=== PATIENT | female | born 1965 ===

== ENCOUNTER 2017-07-11 08:33 | Emergency (ER) | payer OTHER ==
[2017-07-11 09:15] VITALS: BP 111/91
[2017-07-11] MEDS ORDERED: Ketorolac INJ* 30 MG/ML 1 ML VIAL IM ONE (09:36)
--- NOTE | 2017-07-11 10:01 | UC ---
Lower Extremity/Ankle HPI - HPI Summary HPI Summary: 52 up female presents for evaluation of her left foot States she has had migraines since a teen Has never had any imaging of her brain that she can remember states her headaches have been getting worse her PCP has prescribed IM nubain for her states her HAs are causing disequilbirium and she has had frequent fails photophobia no stiff neck can't get in to see a neurologist for 6 months - History of Current Complaint Chief Complaint: UCLowerExtremity Stated Complaint: LEFT FOOT INJURY FROM FALL Time Seen by Provider: 07/11/17 09:28 Onset/Duration: Sudden Onset, Lasting Hours Severity Initially: Severe Severity Currently: Severe Pain Intensity: 9 Pain Scale Used: 0-10 Numeric Aggravating Factor(s): Standing, Ambulation Alleviating Factor(s): Rest, Elevation Able to Bear Weight: No - Allergies/Home Medications Allergies/Adverse Reactions: Allergies Allergy/AdvReac Type Severity Reaction Status Date / Time No Known Allergies Allergy Verified 07/11/17 09:08 Home Medications: Home Medications ALPRAZolam [Xanax] 3 mg PO DAILY 07/11/17 [History Confirmed 07/11/17] Cetirizine* [ZyrTEC 10 MG TAB*] 10 mg PO DAILY 07/11/17 [History Confirmed 07/11] Dicyclomine CAP* [Bentyl CAP*] 20 mg PO QID PRN 07/11/17 [History Confirmed ] Linaclotide (NF) [Linzess (NF)] 290 mcg PO DAILY 07/11/17 [History Confirmed ] Metaxalone TAB* [Skelaxin TAB*] 800 mg PO QID 07/11/17 [History Confirmed ] Nalbuphine* [nuBAIN*] 20 mg .SEE ORDER TID 07/11/17 [History Confirmed 07/11/17] Zolpidem TAB* [Ambien TAB*] 10 mg PO BEDTIME 07/11/17 [History Confirmed ] busPIRone TAB* [Buspar TAB*] 10 mg PO DAILY 07/11/17 [History Confirmed 07/11/17 ] diphenhydrAMINE HCl [Benadryl Allergy] 75 mg PO DAILY 07/11/17 [History Confirmed 07/11/17] PMH/Surg Hx/FS Hx/Imm Hx Previously Healthy: Yes Neurological History: Migraine Psychological History: Anxiety, Depression - Surgical History Surgical History: Yes Surgery Procedure, Year, and Place: Hysterectomy. Polyp removal. Tonsils - Social History Alcohol Use: None Substance Use Type: None Smoking Status (MU): Never Smoked Tobacco Review of Systems Constitutional: Negative Skin: Negative Eyes: Negative ENT: Negative Respiratory: Negative Cardiovascular: Negative Gastrointestinal: Negative Genitourinary: Negative Motor: Negative Neurovascular: Negative Musculoskeletal: Arthralgia Neurological: Headache Psychological: Negative Is Patient Immunocompromised?: No All Other Systems Reviewed And Are Negative: Yes Physical Exam Triage Information Reviewed: Yes Appearance: Well-Appearing, No Pain Distress, Well-Nourished Vital Signs: Initial Vital Signs Temp 98.2 F 07/11/17 09:09 Pulse 100 07/11/17 09:09 Resp 20 07/11/17 09:09 BP 111/91 07/11/17 09:09 Pulse Ox 96 07/11/17 09:09 Vital Signs Reviewed: Yes Eyes: Positive: Conjunctiva Clear, Other: - eomi/perrl ENT: Positive: Hearing grossly normal. Negative: Nasal drainage, Trismus, Muffled voice, Hoarse voice Dental Exam: Normal Neck: Positive: Supple, Nontender, No Lymphadenopathy Respiratory: Positive: Lungs clear, Normal breath sounds, No respiratory distress, No accessory muscle use Cardiovascular: Positive: RRR, No Murmur Musculoskeletal: Positive: Edema @ - dorsum of left foot Neurological Exam: Normal Neurological: Positive: Alert, Other: - grossly non -focal, swlling dorum of foot Psychological Exam: Normal Skin Exam: Normal Diagnostics - Radiology No standard instances Xray Interpretation: No Acute Changes - no fx foot/normal CT of brain Radiology Interpretation Completed By: Radiologist Lower Extremity Course/Dx - Differential Dx/Diagnosis Provider Diagnoses: left foot sprain. chronic headache Discharge - Sign-Out/Discharge Documenting (check all that apply): Discharge - Discharge Plan Condition: Stable Disposition: HOME Patient Education Materials: Foot Sprain (ED), General Headache (ED) Referrals: Dominic Kennedy MD [Medical Doctor] - If Needed (recheck next week if not better) Nallely Epps [Primary Care Provider] - 5 Days Additional Instructions: aleve 2 twice daily with food for pain - Billing Disposition and Condition Condition: STABLE Disposition: HOME
--- NOTE | 2017-07-11 10:13 | RAD ---
Indication: Headaches, fall CT of the brain was performed without IV contrast. Ventricular structures are midline. No midline shift is noted. The extra-axial spaces are unremarkable. There is no evidence of intracranial mass or hemorrhage. No other high or low density lesions are identified. Mastoid air cells and paranasal sinuses are otherwise unremarkable. IMPRESSION: NO EVIDENCE OF INTRACRANIAL MASS OR HEMORRHAGE IS NOTED.
--- NOTE | 2017-07-11 10:24 | RAD ---
HISTORY: Left foot injury COMPARISONS: None VIEWS: 3, Frontal, lateral, and oblique views of the left foot FINDINGS: BONE DENSITY: Normal. BONES: There is no displaced fracture. JOINTS: There is osteoarthritis of the first MTP joint and to lesser extent of the midfoot. ALIGNMENT: There is no dislocation. SOFT TISSUES: Unremarkable. OTHER FINDINGS: None. IMPRESSION: OSTEOARTHRITIS. NO ACUTE OSSEOUS INJURY. IF SYMPTOMS PERSIST, RECOMMEND REPEAT IMAGING.
== END 2017-07-11 11:32 | disposition home or self-care (01) ==
LOC: UCCORT 08:33
DX: R51 Headache (principal); S93.602A Unspecified sprain of left foot, initial encounter; X58.XXXA Exposure to other specified factors, initial encounter; Y92.9 Unspecified place or not applicable
CPT/HCPCS: 70450; 96372; 99213; G0463; J1885